=== PATIENT | male | born 1990 | race African-American/Black ===

== ENCOUNTER 2023-05-22 08:44 | Emergency (ER) | payer OTHER ==
[2023-05-22 09:46] LABS: Hematocrit 29.9 % (38.8-50.0); Hemoglobin 9.6 g/dL (13.5-17.5); Mean Corpuscular HGB CONC 32.1 g/dL (32.0-36.0); Mean Corpuscular Hemoglobin 22.7 pg (27.0-33.0); Mean Corpuscular Volume 70.9 fl (81.2-95.1); Mean Platelet Volume 9.4 fl (7.4-10.4); Platelet Count 507 10x3/uL (150-450); RBC Distribution Width 19.7 % (11.5-14.5); Red Blood Cell (RBC) Count 4.22 10x6/uL (4.32-5.72); White Blood Cell (WBC) Count 16.6 10x3/uL (3.5-10.5)
[2023-05-22 09:57] LABS: ALT (SGPT) 51 U/L (8-55); AST (SGOT) 88 U/L (5-34); Alkaline Phosphatase 413 U/L (40-110); Anion Gap 17 mmol/L (10-20); BUN (Urea Nitrogen) 9 mg/dL (8.9-20.6); Bilirubin, Total 1.3 mg/dL (0.2-1.2); Calc. Creatinine Clearance 0 mL/min (70-130); Calcium 8.4 mg/dL (7.8-10.44); Carbon Dioxide 24 mmol/L (22-29); Chloride 96 mmol/L (98-107); Estimated GFR 126; Globulin 2.6 g/dL (2.4-3.5); Glucose 98 mg/dL (70-105); Protein, Total 5.6 g/dL (6.0-8.3); Sodium 132 mmol/L (136-145)
[2023-05-22 09:58] LABS: CRP (Inflammatory) 15.68 mg/dL (= or < 0.5); Magnesium 2.2 mg/dL (1.6-2.6)
[2023-05-22 09:59] LABS: Troponin I Less than 0.010 ng/mL (< 0.028)
[2023-05-22 10:09] LABS: Band 16 % (5-11); Lymphocytes 8 % (21-51); Monocytes 19 % (0-10); Neutrophil 57 % (42-75)
[2023-05-22 10:10] LABS: Anisocytosis SLIGHT = 6-15 cells (100X) (0-5/hpf); Hypochromia SLIGHT = 6-15 cells (100X) (0-5/hpf); Microcytosis SLIGHT = 6-15 cells (100X) (0-5/hpf); Platelet Adequacy Comment Appears Increased; Polychromasia SLIGHT = 2-3 cells (100X) (0-2/hpf)
[2023-05-22 10:15] LABS: HIV (1/2) Antibody/Antigen Non-Reactive (NonReactive); HIV 1/2 INDEX 0.08 S/CO (<1.00); Thyroid Stimulating Hormone 3.2021 uIU/mL (0.35-4.94)
[2023-05-22] MEDS ORDERED: Piperacillin/Tazobactam 4.5 GM VIAL ONE (10:57)
[2023-05-22 13:38] LABS: Bilirubin Neg (Negative); Blood, Urine 10 (Negative); Clarity Clear (Clear); Glucose, Urine (Dipstick) Normal (Negative); Ketone, Urine Negative (Negative); Leukocyte Negative (Negative); Nitrite Negative (Negative); Protein, Urine (Dipstick) 15 mg/dl (Neg-Trace); Specific Gravity, Urine 1.015 (1.005-1.030); pH, Urine 6.5 (5.0-9.0)
[2023-05-22 14:11] LABS: SARS-CoV-2 NAA Rapid Test Not Detected (NotDetected)
[2023-05-22 14:24] LABS: Bacteria/HPF Rare-Few HPF (None Seen); CAUTI Indications for Culture Pelvic or flank pain; RBC/HPF 0-3 HPF (0-3); Squamous Epithelial 0-3 HPF (0-3); WBC/HPF None Seen HPF (0-3)
[2023-05-22 14:25] LABS: Urine Culture Reflex No No
== END 2023-05-22 17:41 | disposition short-term general hospital (02) ==
LOC: CSHERS 08:44 → EEVIPCON 08:44 → CSHERS 17:41
DX: D72.825 Bandemia (principal); R94.5 Abnormal results of liver function studies; R63.4 Abnormal weight loss; D64.9 Anemia, unspecified; I10 Essential (primary) hypertension
CPT/HCPCS: 36415; 71045; 76705; 80053; 81001; 83605; 83735; 83880; 84443; 84484; 85025; 86140; 87040; 87389; 93005; 93010; 96374; J2543; U0002